=== PATIENT | male | born 1945 | race Caucasian/White ===

== ENCOUNTER → 2021-06-26 | Day surgery (SDC) | payer MEDICARE, OTHER ==
[~2021-06-26] VITALS: Ht 185.4 cm; Wt 86.2 kg
[~2021-06-26] MED LIST: ALOGLIPTIN-PIO1 EAC1 PO; AMARYL2 MG PO; ASPIRIN EC81 MG PO; COZAAR50 MG PO; DETROL LA4 MG PO; EYE VITAMIN PO; FINASTERIDE5 MG PO; FLOMAX0.4 MG PO; INHALER INH; LIPITOR40 MG PO; METFORMIN HCL500 MG PO; OXYGEN
== END | disposition home or self-care (01) ==
LOC: FAS 07:39
DX: Z12.11 Encounter for screening for malignant neoplasm of colon (principal); D12.4 Benign neoplasm of descending colon; D12.3 Benign neoplasm of transverse colon; D12.5 Benign neoplasm of sigmoid colon; K63.5 Polyp of colon; K62.1 Rectal polyp; K57.30 Diverticulosis of large intestine without perforation or abscess without bleeding; K64.8 Other hemorrhoids; K52.9 Noninfective gastroenteritis and colitis, unspecified; E11.9 Type 2 diabetes mellitus without complications; J44.9 Chronic obstructive pulmonary disease, unspecified; N40.0 Benign prostatic hyperplasia without lower urinary tract symptoms; I10 Essential (primary) hypertension; E78.5 Hyperlipidemia, unspecified; E03.8 Other specified hypothyroidism; Z86.010 Personal history of colon polyps; Z87.891 Personal history of nicotine dependence; Z79.82 Long term (current) use of aspirin; Z79.84 Long term (current) use of oral hypoglycemic drugs; Z79.899 Other long term (current) drug therapy
CPT/HCPCS: J2704; J7120

== ENCOUNTER 2021-07-03 14:29 | Inpatient (IN) | payer MEDICARE, OTHER ==
[~2021-07-03] VITALS: Ht 185.4 cm; Wt 83.9 kg
[2021-07-03 14:55] LABS: BASOPHIL 0.3 % (0-2); EOSINOPHIL 0.2 % (0-7); HCT 51.2 % (42.0-52.0); HGB 16.9 g/dl (13.2-18.0); LYMPHOCYTE 5.6 % (15-48); MCH 32.4 pg (25.0-31.0); MCV 98.3 fL (78.0-100.0); MONOCYTE 4.6 % (0-12); MPV 12.3 fL (6.0-9.5); NEUTROPHIL 88.7 % (41-80); PLT 301 K/uL (150-400); RBC 5.21 M/uL (4.70-6.00); RDW 13.2 % (11.5-14.0); WBC 25.3 K/uL (4.0-10.5)
[2021-07-03 15:06] LABS: INR 1.24 (0.9-1.2); PROTHROMBIN TIME 14.9 SECONDS (11.8-13.4); PTT 30.2 SECONDS (24.4-34.7)
[2021-07-03 15:07] LABS: D-DIMER 1.08 ug/mLFEU (0.00-0.41)
[2021-07-03 15:18] LABS: BILIRUBIN NEGATIVE (NEGATIVE); BLOOD NEGATIVE Ery/uL (NEGATIVE); CLARITY CLEAR (CLEAR); COLOR YELLOW (YELLOW); GLUCOSE (U) 1+ mg/dL (NORMAL); LEUKOCYTES NEGATIVE Leu/uL (NEGATIVE); NITRITE NEGATIVE (NEGATIVE); PROTEIN TRACE (LOW) mg/dL (NEGATIVE); UROBILINOGEN 0.2 mg/dL (0.2-1.0); pH 6.5 (5.0-9.0)
[2021-07-03 15:19] LABS: ALBUMIN 2.9 g/dL (3.4-5.0); BILIRUBIN - TOTAL 0.6 mg/dL (0.2-1.0); BUN/CREAT RATIO (CALC) 11.5 RATIO; CREATININE 1.04 mg/dL (0.67-1.17); GLOBULIN (CALCULATION) 4.8 g/dL; TOTAL PROTEIN 7.7 g/dL (6.4-8.2)
[2021-07-03 15:32] LABS: LACTIC ACID 1.9 mmol/L (0.4-1.9)
[2021-07-03 15:38] LABS: BACTERIA 3+; SQUAMOUS EPITHELIAL CELLS RARE; URINARY WBC RARE
[2021-07-03 15:39] LABS: MUCOUS MODERATE
[2021-07-03 15:50] LABS: CORONAVIRUS 2019 SARS-COV-2 NEGATIVE (NEGATIVE); INFLUENZA A NAA NEGATIVE (NEGATIVE)
[2021-07-03 16:22] LABS: LYMPHOCYTE(M) 8 % (15-48); MONOCYTE(M) 2 % (0-12); NEUTROPHILS(M) 90 % (41-80); PLATELET ESTIMATE NORMAL; PLATELET MORPHOLOGY NORMAL; TOTAL CELL COUNT 100
[2021-07-04 05:44] LABS: BASOPHIL 0.4 % (0-2); EOSINOPHIL 0.8 % (0-7); HCT 43.8 % (42.0-52.0); HGB 14.6 g/dl (13.2-18.0); LYMPHOCYTE 8.4 % (15-48); MCH 32.7 pg (25.0-31.0); MCHC 33.3 g/dL (32.0-36.0); MONOCYTE 7.3 % (0-12); MPV 12.5 fL (6.0-9.5); NEUTROPHIL 82.4 % (41-80); NRBC 0; PLT 255 K/uL (150-400); RBC 4.47 M/uL (4.70-6.00); RDW 13.3 % (11.5-14.0); WBC 19.7 K/uL (4.0-10.5)
[2021-07-04 06:10] LABS: ALBUMIN 2.4 g/dL (3.4-5.0); BILIRUBIN - TOTAL 0.5 mg/dL (0.2-1.0); BUN/CREAT RATIO (CALC) 12.5 RATIO; CREATININE 0.96 mg/dL (0.67-1.17); POTASSIUM 3.3 mmol/L (3.5-5.1); TOTAL PROTEIN 6.4 g/dL (6.4-8.2)
[2021-07-05 05:34] LABS: BASOPHIL 0.2 % (0-2); EOSINOPHIL 0.1 % (0-7); HCT 44.8 % (42.0-52.0); LYMPHOCYTE 7.7 % (15-48); MCH 32.9 pg (25.0-31.0); MCHC 33.5 g/dL (32.0-36.0); MCV 98.2 fL (78.0-100.0); MONOCYTE 5.6 % (0-12); MPV 12.3 fL (6.0-9.5); NEUTROPHIL 85.6 % (41-80); NRBC 0; PLT 270 K/uL (150-400); RBC 4.56 M/uL (4.70-6.00); WBC 22.2 K/uL (4.0-10.5)
[2021-07-05 05:53] LABS: ALBUMIN 2.5 g/dL (3.4-5.0); BILIRUBIN - TOTAL 0.4 mg/dL (0.2-1.0); BUN/CREAT RATIO (CALC) 18.7 RATIO; C-REACTIVE PROTEIN 11.7 mg/dL (<=0.90); CREATININE 0.91 mg/dL (0.67-1.17); GLOBULIN (CALCULATION) 4.2 g/dL; POTASSIUM 3.9 mmol/L (3.5-5.1); TOTAL PROTEIN 6.7 g/dL (6.4-8.2)
--- NOTE | 2021-07-05 12:07 | NUR ---
07/05/21 Mr. Watson lives at home with his spouse. He has 2 children and 2 step children. - Mr. Watson has 02 for nocturnal use at 2 L and prn poratable 02 from [employer]. He is independent with ADLS and mobility. 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 - He was educated to [facility] [employer] [facility] [employer]. -
[2021-07-06 05:45] LABS: BASOPHIL 0.2 % (0-2); EOSINOPHIL 0.1 % (0-7); HCT 42.8 % (42.0-52.0); HGB 14.1 g/dl (13.2-18.0); LYMPHOCYTE 8.1 % (15-48); MCHC 32.9 g/dL (32.0-36.0); MCV 97.1 fL (78.0-100.0); MONOCYTE 4.6 % (0-12); MPV 12.5 fL (6.0-9.5); NEUTROPHIL 86.2 % (41-80); NRBC 0; PLT 291 K/uL (150-400); RBC 4.41 M/uL (4.70-6.00); RDW 13.1 % (11.5-14.0); WBC 18.3 K/uL (4.0-10.5)
[2021-07-06 06:00] LABS: BUN/CREAT RATIO (CALC) 16.3 RATIO; CREATININE 1.04 mg/dL (0.67-1.17); POTASSIUM 3.8 mmol/L (3.5-5.1)
--- NOTE | 2021-07-07 13:02 | NUR ---
TC TO [facility] AT [facility]. PT HAS HIS OXYGEN THROUGH [facility]. [facility] IS GOING TO DELIVER EXTRA PORTABLE TANKS TO THE HOSPITAL AND WILL MAKE SURE PT HAS CONCENTRATOR AT THE HOME HE IS ON 8L OXYMIZER.
[2021-07-07] MEDS ORDERED: DUONEB 2.5-0.5M1 AMP NEB (13:17)
[2021-07-07] MEDS ORDERED: AZITHROMYCIN250 MG PO (13:17)
[2021-07-07] MEDS ORDERED: PREDNISONE 20MG20 MG PO (13:17)
[2021-07-07] MEDS ORDERED: DULERA 100 MCG8.8 GM INH (13:17)
[2021-07-07] MEDS ORDERED: CEFDINIR300 MG PO (13:17)
== END 2021-07-07 14:41 | disposition home health service (06) | DRG 871 ==
LOC: FER 14:29 → FTCU 17:12
PROVIDERS: Emergency Medicine; Nurse Practitioner; Nurse Practitioner Family; ADMIT Internal Medicine
DX: A41.9 Sepsis, unspecified organism (principal); J18.9 Pneumonia, unspecified organism; J96.21 Acute and chronic respiratory failure with hypoxia; J81.1 Chronic pulmonary edema; R65.20 Severe sepsis without septic shock; J43.9 Emphysema, unspecified; Z20.822 Contact with and (suspected) exposure to COVID-19; Z66 Do not resuscitate; I10 Essential (primary) hypertension; E11.9 Type 2 diabetes mellitus without complications; E78.5 Hyperlipidemia, unspecified; R79.89 Other specified abnormal findings of blood chemistry; I27.20 Pulmonary hypertension, unspecified; I07.1 Rheumatic tricuspid insufficiency; F41.9 Anxiety disorder, unspecified; N40.0 Benign prostatic hyperplasia without lower urinary tract symptoms; Z99.81 Dependence on supplemental oxygen; Z86.010 Personal history of colon polyps; Z85.828 Personal history of other malignant neoplasm of skin; Z98.890 Other specified postprocedural states; Z87.442 Personal history of urinary calculi; Z87.891 Personal history of nicotine dependence; Z79.84 Long term (current) use of oral hypoglycemic drugs; Z79.899 Other long term (current) drug therapy
CPT/HCPCS: 36415; 36600; 71045; 71275; 80048; 80053; 81001; 82803; 82962; 83605; 83735; 83880; 84100; 84145; 84484; 85025; 85379; 85610; 85730; 86140; 87040; 93005; 94010; 94640; 94667; 94668; J0456; J0696; J1650; J1815; J1940; J7050; J7512; Q9967; U0002